=== PATIENT | female | born 1995 | race Caucasian/White ===

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

== ENCOUNTER 2018-01-27 16:06 | Emergency (ER) | payer BC ==
--- NOTE | 2018-01-27 18:00 | EDPHY ---
H & P Stated Complaint: fell down stairs last night, hit head, nausea, shakey Time Seen by Provider: 01/27/18 16:47 HPI/ROS: Chief complaint: Fall with head injury History of present illness: This is a 22-year-old female who presents to the emergency department for head injury. Late last night she fell down stairs. She struck her head during this. She has vague recollection of the fall as she was intoxicated. Bystanders reported to her they do not think she lost consciousness. She went home and went to bed. She woke up this morning feeling poorly but thought it was just because she was hung over. Symptoms improved but then this afternoon began to worsen. She developed a headache, nausea and multiple episodes of dry heaving. She denies other associated signs or symptoms including no paresthesias, no weakness or paralysis. No report of pain in her trauma to other parts of the body including the neck, back, chest, abdomen, pelvis or extremities. No open wounds. Review of systems: A 10 point review of systems was obtained and other than described above was negative - Personal History LMP (Females 10-55): Over 28 Days Ago - Medical/Surgical History Hx Asthma: No Hx Chronic Respiratory Disease: No Hx Diabetes: No Hx Cardiac Disease: No Hx Renal Disease: No Hx Cirrhosis: No Hx Alcoholism: No Hx HIV/AIDS: No Hx Splenectomy or Spleen Trauma: No Other PMH: mouth surg - Social History Smoking Status: Never smoked - Physical Exam Exam: General Appearance: Alert, nontoxic Eyes: PERRLA ENT: Contusion to the left ear over the helix as well as over the mastoid. Respiratory: Lungs clear to auscultation bilaterally. Cardiac: Regular rate and rhythm. Gastrointestinal: Soft, nondistended, nontender. Neurological: Alert and oriented x4. Cranial nerves 2-12 grossly intact. Strength and sensation intact and symmetrical. Skin: Contusion to the left ear and mastoid region as above. No other lesions consistent with trauma. Musculoskeletal: The head is nontender. The face is nontender. The spine is nontender without crepitus, bony deformity or step-off. She is moving all extremities without difficulty. Ambulating without difficulty. Constitutional: Initial Vital Signs Temperature (C) 36.6 C 01/27/18 16:09 Heart Rate 102 H 01/27/18 16:09 Respiratory Rate 20 01/27/18 16:09 Blood Pressure 139/93 H 01/27/18 16:09 O2 Sat (%) 99 01/27/18 16:09 O2 Delivery Mode Room Air Allergies/Adverse Reactions: No Known Allergies Allergy (Verified 01/27/18 16:08) Home Medications: Medication Instructions Recorded Control 01/27/18 Medical Decision Making - Diagnostics Imaging Results: Imaging Impressions Head CT 01/27/18 17:02 Impression: 1. Normal CT brain without contrast. 2. No epidural or subdural hematoma. Findings and recommendations discussed with Emergency Department physician, NORA Ziegler at 18:00 hour, 01/27/2018. Final report concurs with initial preliminary interpretation. Imaging: Discussed imaging studies w/ order caller Radiologist ED Course/Re-evaluation: Patient seen under the supervision of my primary supervising physician Dr. Chey Long. Patient presents to the emergency department for evaluation of a head injury. She is nontoxic. Physical exam did reveals bruising around the left ear and mastoid region. Given this finding as well as worsening headache and persistent nausea a CT scan was obtained and negative. Likely findings are soft tissue injury, a contusion. Sounds like she has suffered a concussion with postconcussive syndrome. She is discharged home with friends. Home care is discussed. Head injury precautions are discussed at length. She is to follow up with [facility] this week for recheck. Strict return precautions are given. The patient voiced understanding and agreement with plan. Differential Diagnosis: Included but not limited to minor head injury, concussion, skull fracture, intracranial bleed Departure - Departure Disposition: Home, Routine, Self-Care Clinical Impression: Head injury Qualifiers: Encounter type: initial encounter Qualified Code(s): S09.90XA - Unspecified injury of head, initial encounter Contusion Qualifiers: Encounter type: initial encounter Contusion area: head Contusion of head detail : ear Laterality: left Qualified Code(s): S00.432A - Contusion of left ear, initial encounter Condition: Good Instructions: Head Injury (ED), Contusion in Adults (ED) Additional Instructions: Follow-up with [facility] on Monday or Monday for recheck Maintain head injury precautions as discussed, avoid stimulating factors such as TV, computers, loud music until symptoms resolve. Do not engage in physical activity that could result in head injury until your symptoms have completely resolved and you have been cleared by her primary care doctor If symptoms worsen or new symptoms develop return to the emergency room for recheck Referrals: NONE *PRIMARY CARE P,. [Primary Care Provider] - As per Instructions [facility] [[facility]] - As per Instructions
[2018-01-27 18:12] VITALS: BP 128/75
== END 2018-01-27 18:11 | disposition home or self-care (01) ==
DX: S06.0X0A Concussion without loss of consciousness, initial encounter (principal); S00.432A Contusion of left ear, initial encounter; W10.8XXA Fall (on) (from) other stairs and steps, initial encounter; Y92.9 Unspecified place or not applicable